=== PATIENT | female | born 1980 | race Caucasian/White ===

== ENCOUNTER 2016-11-16 20:25 | Emergency (ER) | payer MEDICARE, MEDICAID ==
[2016-11-16] MEDS ORDERED: Sodium Chloride 0.9% 10 ML Syringe FLUSH PRN (20:44)
--- NOTE | 2016-11-16 20:44 | EDM.PDOC ---
ED HPI GENERAL MEDICAL PROBLEM - General Chief Complaint: Abdominal Pain Stated Complaint: Lower abdominal pain; vomiting; nausea Time Seen by Provider: 11/16/16 20:29 Source of Information: Reports: Patient, RN, RN Notes Reviewed, Other (caregiver ) History Limitations: Reports: No Limitations - History of Present Illness INITIAL COMMENTS - FREE TEXT/NARRATIVE: Patient presents the emergency room at [facility] complaining of bilateral lower abdominal pain that started yesterday. The patient states that she did vomit several times yesterday. The patient states that she has noticed blood in the toilet. She states that the blood was after urination. The patient states that she has not seen any blood in bowel movements. The patient was recently treated for kidney stones in finish her antibiotics on November 06. The patient denies any shortness of breath or chest pain. No focal neurological deficits. The patient denies any fever or chills. The patient states that her abdominal pain starts after she eats. Last meal was one hour ago. Onset Date: 11/15/16 Duration: Waxing/Waning Location: Reports: Other (bilateral lower abdomen) Quality: Reports: Dull, Pressure Severity: Mild Context: Denies: Activity, Exercise, Sick Contact, Trauma Associated Symptoms: Reports: Nausea/Vomiting Treatments MERCHANDISE EXECUTION LEADER: Reports: Other (see below) (none) - Related Data Allergies Allergy/AdvReac Type Severity Reaction Status Date / Time latex Allergy Rash Verified 07/11/14 13:12 Home Meds: Home Meds Adapalene [Differin] 45 gm TP ASDIRECTED PRN 05/03/15 [History] Aspirin 1 tab DAILY 05/03/15 [History] Benazepril HCl 1 tab DAILY 05/03/15 [History] Calcium Carb & Citrate/Vit D3 [Calcium + D3 ER Tablet] 1 each PO DAILY 05/03/15 [History] Doxycycline [Vibramycin] 100 mg PO BID 05/03/15 [History] Escitalopram [Lexapro] 20 mg PO DAILY 05/03/15 [History] Multivitamin [Multi-Vitamin Daily] 1 tab DAILY 05/03/15 [History] Propranolol [Inderal LA] 1 cap DAILY 05/03/15 [History] amLODIPine [Norvasc] 5 mg PO DAILY 05/03/15 [History] busPIRone HCl [Buspirone HCl] 1 tab DAILY 05/03/15 [History] metFORMIN HCl [Metformin HCl] 500 mg PO BID 05/03/15 [History] Ciprofloxacin [Ciprofloxacin HCl] 500 mg PO BID #20 tablet 11/16/16 [Rx] metroNIDAZOLE [Flagyl] 500 mg PO Q8H #30 tablet 11/16/16 [Rx] predniSONE [Deltasone] 20 mg PO BID #10 tablet 11/16/16 [Rx] Past Medical History Other Gastrointestinal History: esophageal reflux Other OB/BYN History: abnormal menstration Other Psychiatric History: borderline personality disorder Other Dermatologic History: dermatitis Social & Family History - Tobacco Use Smoking Status *Q: Never Smoker - Recreational Drug Use Recreational Drug Use: No ED ROS GENERAL - Review of Systems Review Of Systems: See Below Constitutional: Denies: Fever, Chills, Weakness Respiratory: Denies: Shortness of Breath, Cough Cardiovascular: Denies: Chest Pain, Palpitations GI/Abdominal: Reports: Abdominal Pain, Nausea, Vomiting. Denies: Diarrhea : Reports: Hematuria Skin: Reports: No Symptoms Neurological: Reports: No Symptoms. Denies: Dizziness, Headache ED EXAM, GI/ABD - Physical Exam Exam: See Below Exam Limited By: No Limitations General Appearance: Alert, No Apparent Distress, Obese Respiratory/Chest: No Respiratory Distress, Lungs Clear, Normal Breath Sounds Cardiovascular: Regular Rate, Rhythm GI/Abdominal: Hypoactive Bowel Sounds, Tenderness (RLQ to lower pelvis). No: Guarding, Rebound (Female) Exam: Deferred Neurological: Alert, Oriented Skin Exam: Warm, Dry, Intact, Normal Color, No Rash Course - Orders/Labs/Meds Orders: Active Orders 24 hr Category Date Time Status Abdomen Pelvis w Cont [CT] Stat Exams 11/16/16 20:45 Ordered Sodium Chloride 0.9% [Normal Saline] 1,000 ml Med 11/16/16 20:45 Active IV ASDIRECTED Sodium Chloride 0.9% [Normal Saline] 100 ml Med 11/16/16 21:45 Active IV ASDIRECTED Sodium Chloride 0.9% [Saline Flush] Med 11/16/16 20:44 Active 10 ml FLUSH ASDIRECTED PRN Peripheral IV Insertion Adult [OM.PC] Routine Oth 11/16/16 20:44 Ordered Medication Orders Sodium Chloride (Normal Saline) 1,000 mls @ 999 mls/hr IV ASDIRECTED ALEX Last Admin: 11/16/16 21:52 Dose: 999 mls/hr Sodium Chloride (Normal Saline) 100 mls @ 3 mls/sec IV ASDIRECTED ALEX Last Admin: 11/16/16 21:54 Dose: 3 mls/sec Sodium Chloride (Saline Flush) 10 ml FLUSH ASDIRECTED PRN PRN Reason: Keep Vein Open Labs: Laboratory Tests 11/16/16 11/16/16 11/16/16 Range/Units 21:05 21:06 21:06 WBC 11.8 H (4.0-10.0) x10^3/uL RBC 3.75 L (4.00-5.50) x10^6/uL Hgb 11.7 L (12.0-16.0) g/dL Hct 34.2 (33.0-47.0) % MCV 91.2 D (78.0-93.0) fL MCH 31.2 (26.0-32.0) pg MCHC 34.2 (32.0-36.0) g/dL RDW Coeff of Jacobo 13.1 (10.0-15.0) % Plt Count 213 (130-400) x10^3/uL Neut % (Auto) 71.6 (50.0-80.0) % Lymph % (Auto) 20.4 L (25.0-50.0) % Barren % (Auto) 6.3 (2.0-11.0) % Eos % (Auto) 1.4 (0.0-4.0) % Baso % (Auto) 0.3 (0.2-1.2) % Sodium 144 (136-145) mmol/L Potassium 3.2 L (3.5-5.1) mmol/L Chloride 109 H (98-107) mmol/L Carbon Dioxide 25 (21-32) mmol/L BUN 14 (7-18) mg/dL Creatinine 1.0 (0.55-1.02) mg/dL Est Cr Clr Drug Dosing TNP Estimated GFR (MDRD) > 60 Glucose 142 H (74-106) mg/dL Lactic Acid 2.1 H (0.4-2.0) mmol/L Calcium 9.1 (8.5-10.1) mg/dL C-Reactive Protein 0.2 (<=0.9) mg/dL Amylase 31 (25-115) U/L Lipase 60 L (73-393) U/L Urine Color (YELLOW) Urine Appearance (CLEAR) Urine pH (5.0-8.0) Ur Specific Brandon Urine Protein (NEGATIVE) mg/dL Urine Glucose (UA) (NEGATIVE) mg/dL Urine Ketones (NEGATIVE) mg/dL Urine Occult Blood (NEGATIVE) Urine Nitrite (NEGATIVE) Urine Bilirubin (NEGATIVE) Urine Urobilinogen (0.2) EU/dL Ur Leukocyte Esterase (NEGATIVE) Urine RBC (NOT SEEN) /HPF Urine WBC (NOT SEEN) /HPF Ur Squamous Epith Cells (NEGATIVE) /HPF Urine Bacteria (NEGATIVE) /HPF Urine Mucus (NEGATIVE) /LPF Urine HCG, Qual (NEGATIVE) 11/16/16 11/16/16 Range/Units 21:39 21:39 WBC (4.0-10.0) x10^3/uL RBC (4.00-5.50) x10^6/uL Hgb (12.0-16.0) g/dL Hct (33.0-47.0) % MCV (78.0-93.0) fL MCH (26.0-32.0) pg MCHC (32.0-36.0) g/dL RDW Coeff of Jacobo (10.0-15.0) % Plt Count (130-400) x10^3/uL Neut % (Auto) (50.0-80.0) % Lymph % (Auto) (25.0-50.0) % Barren % (Auto) (2.0-11.0) % Eos % (Auto) (0.0-4.0) % Baso % (Auto) (0.2-1.2) % Sodium (136-145) mmol/L Potassium (3.5-5.1) mmol/L Chloride (98-107) mmol/L Carbon Dioxide (21-32) mmol/L BUN (7-18) mg/dL Creatinine (0.55-1.02) mg/dL Est Cr Clr Drug Dosing Estimated GFR (MDRD) Glucose (74-106) mg/dL Lactic Acid (0.4-2.0) mmol/L Calcium (8.5-10.1) mg/dL C-Reactive Protein (<=0.9) mg/dL Amylase (25-115) U/L Lipase (73-393) U/L Urine Color Yellow (YELLOW) Urine Appearance Clear (CLEAR) Urine pH 6.5 (5.0-8.0) Ur Specific Brandon 1.020 Urine Protein Negative (NEGATIVE) mg/dL Urine Glucose (UA) Negative (NEGATIVE) mg/dL Urine Ketones Negative (NEGATIVE) mg/dL Urine Occult Blood Small H (NEGATIVE) Urine Nitrite Negative (NEGATIVE) Urine Bilirubin Negative (NEGATIVE) Urine Urobilinogen 0.2 (0.2) EU/dL Ur Leukocyte Esterase Negative (NEGATIVE) Urine RBC 0-5 (NOT SEEN) /HPF Urine WBC 0-5 (NOT SEEN) /HPF Ur Squamous Epith Cells Many H (NEGATIVE) /HPF Urine Bacteria Few H (NEGATIVE) /HPF Urine Mucus Few H (NEGATIVE) /LPF Urine HCG, Qual Negative (NEGATIVE) Meds: Medications Generic Name Dose Route Start Last Admin Trade Name Freq PRN Reason Stop Dose Admin Sodium Chloride 1,000 mls @ 999 mls/hr 11/16/16 20:45 11/16/16 21:52 Normal Saline IV 999 mls/hr ASDIRECTED ALEX Administration Sodium Chloride 100 mls @ 3 mls/sec 11/16/16 21:45 11/16/16 21:54 Normal Saline IV 3 mls/sec ASDIRECTED ALEX Administration Sodium Chloride 10 ml 11/16/16 20:44 Saline Flush FLUSH ASDIRECTED PRN Keep Vein Open Discontinued Medications Generic Name Dose Route Start Last Admin Trade Name Freq PRN Reason Stop Dose Admin Iopamidol 100 ml 11/16/16 21:39 11/16/16 21:54 Isovue-300 (61%) IVPUSH 11/16/16 21:40 100 ml ONETIME ONE Administration Ketorolac Tromethamine 30 mg 11/16/16 20:45 11/16/16 21:34 Toradol IVPUSH 11/16/16 20:46 30 mg ONETIME ONE Administration Ondansetron HCl 4 mg 11/16/16 20:45 11/16/16 21:30 Zofran IVPUSH 11/16/16 20:46 4 mg ONETIME ONE Administration Potassium Chloride 40 meq 11/16/16 21:34 11/16/16 22:51 Klor-Con M20 PO 11/16/16 21:35 40 meq ONETIME ONE Administration - Radiology Interpretation Free Text/Narrative:: See scanned document in EMR CT Results Date: 11/16/16 CT Results Time: 22:43 Departure - Departure Time of Disposition: 23:11 Disposition: Home, Self-Care 01 Condition: good Clinical Impression: Colitis Diverticulitis large intestine Qualifiers: Diverticulitis bleeding: with bleeding Diverticulitis complication: unspecified complication status Qualified Code(s): K57.33 - Diverticulitis of large intestine without perforation or abscess with bleeding - Discharge Information Prescriptions: Ciprofloxacin [Ciprofloxacin HCl] 500 mg PO BID #20 tablet metroNIDAZOLE [Flagyl] 500 mg PO Q8H #30 tablet predniSONE [Deltasone] 20 mg PO BID #10 tablet Instructions: Diverticulitis Referrals: Genny Wolfe PA-C [Primary Care Provider] - Forms: ED Department Discharge Additional Instructions: 1. Stay well hydrated and rest 2. Take medications for the full coarse, even if you are feeling better 3. Eat a bland diet 4. See your primary in follow up next week to see how you are doing - Problem List Review Problem List Initiated/Reviewed/Updated: Yes - My Orders Last 24 Hours: My Active Orders 11/16/16 20:44 Sodium Chloride 0.9% [Saline Flush] 10 ml FLUSH ASDIRECTED PRN Peripheral IV Insertion Adult [OM.PC] Routine 11/16/16 20:45 Abdomen Pelvis w Cont [CT] Stat Sodium Chloride 0.9% [Normal Saline] 1,000 ml IV ASDIRECTED 11/16/16 21:45 Sodium Chloride 0.9% [Normal Saline] 100 ml IV ASDIRECTED - Assessment/Plan Last 24 Hours: My Active Orders 11/16/16 20:44 Sodium Chloride 0.9% [Saline Flush] 10 ml FLUSH ASDIRECTED PRN Peripheral IV Insertion Adult [OM.PC] Routine 11/16/16 20:45 Abdomen Pelvis w Cont [CT] Stat Sodium Chloride 0.9% [Normal Saline] 1,000 ml IV ASDIRECTED 11/16/16 21:45 Sodium Chloride 0.9% [Normal Saline] 100 ml IV ASDIRECTED
[2016-11-16] MEDS ORDERED: Sodium Chloride 0.9% 1,000 ML IV SCH (20:45)
[2016-11-16] MEDS ORDERED: Ketorolac 30 MG/ML SDV IVPUSH ONE (20:45)
[2016-11-16] MEDS ORDERED: Ondansetron 4 MG/2 ML SDV IVPUSH ONE (20:45)
[2016-11-16 21:29] LABS: CHLORIDE,CL 109 mmol/L (98-107); SODIUM,NA 144 mmol/L (136-145)
[2016-11-16] MEDS ORDERED: Potassium Chloride 20 MEQ Tab.ER PO ONE (21:34)
[2016-11-16] MEDS ORDERED: Iopamidol 612 MG/ML 100 ML Bottle IVPUSH ONE (21:39)
[2016-11-16] MEDS ORDERED: Sodium Chloride 0.9% 100 ML IV SCH (21:45)
[2016-11-16] MEDS ORDERED: methylPREDNISolone Sodium Succinate 125 MG/2 ML SDV IVPUSH ONE (23:18)
[2016-11-17 08:11] VITALS: BP 123/75
== END 2016-11-16 23:45 | disposition home or self-care (01) ==
LOC: VM.ED 20:25
DX: K52.9 Noninfective gastroenteritis and colitis, unspecified (principal); K57.33 Diverticulitis of large intestine without perforation or abscess with bleeding; Z91.040 Latex allergy status; Z79.82 Long term (current) use of aspirin; Z79.899 Other long term (current) drug therapy; Z98.84 Bariatric surgery status
CPT/HCPCS: 36415; 74177; 80048; 81001; 81025; 82150; 83605; 83690; 85025; 86140; 96361; 96374; 96375; 99284; A9270; J1885; J2405; J2930; J7030; J7050; Q9967

== ENCOUNTER 2016-12-20 06:14 | Day surgery (SDC) | payer MEDICARE, MEDICAID ==
[2016-12-20] MEDS ORDERED: Lactated Ringers 1,000 ML IV SCH (07:00)
[2016-12-20] MEDS ORDERED: fentaNYL 100 MCG/2 ML SDV ONE (07:54)
[2016-12-20] MEDS ORDERED: Propofol 200 MG/20 ML SDV ONE (07:54)
[2016-12-20 10:40] VITALS: BP 100/54
--- NOTE | 2016-12-20 15:48 | OR ---
PREOPERATIVE DIAGNOSIS: Recent diverticulitis. POSTOPERATIVE DIAGNOSIS: Essentially normal colonoscopic exam. No true diverticula noted. PROCEDURE PROPOSED AND PROCEDURE DONE: Total flexible colonoscopy. INDICATION: A 36-year-old female who was diagnosed with diverticulitis with the onset of some acute right lower quadrant abdominal pain. CAT scan apparently showed possible diverticulitis. She was treated with oral antibiotics. She was not hospitalized and referred now for colonoscopic exam. TECHNIQUE: The patient was brought to the endoscopy suite and placed in left lateral decubitus position. She was sedated per MID TEACHER with propofol. The flexible video colonoscope was then passed transanally and under visualization advanced to the cecum. Examination revealed a normal ascending, transverse, descending, sigmoid, and rectal colon. There was no evidence of any obvious diverticular orifices noted throughout the exam. No signs of any polyps, inflammation, colitis, or any other abnormalities. The scope was then withdrawn. The patient tolerated the procedure well. FINAL IMPRESSION: Essentially normal colonoscopic exam. PLAN: The patient was reassured. I did not feel she needed any particular followup exams, other than for screening in the future. She was discharged in good condition. SCM: 12/20/2016 08:29:58 MODL: 12/20/2016 15:41:08 /[id number]
== END 2016-12-20 09:55 | disposition home or self-care (01) ==
LOC: VM.SDS 06:14
PROVIDERS: ATTEND Surgery
DX: R10.31 Right lower quadrant pain (principal); K57.92 Diverticulitis of intestine, part unspecified, without perforation or abscess without bleeding; I10 Essential (primary) hypertension; E66.01 Morbid (severe) obesity due to excess calories; E11.9 Type 2 diabetes mellitus without complications; G47.33 Obstructive sleep apnea (adult) (pediatric); Z68.41 Body mass index [BMI] 40.0-44.9, adult; Z91.040 Latex allergy status; Z98.890 Other specified postprocedural states; Z79.899 Other long term (current) drug therapy; Z79.82 Long term (current) use of aspirin
CPT/HCPCS: 00810; 45378; 82962; J2704; J3010; J7120

== ENCOUNTER 2017-11-22 17:38 | Emergency (ER) | payer MEDICARE, MEDICAID ==
[2017-11-22 17:57] VITALS: BP 156/111
--- NOTE | 2017-11-22 18:16 | EDM.PDOC ---
ED HPI GENERAL MEDICAL PROBLEM - General Chief Complaint: Back Pain or Injury Stated Complaint: lower left back and leg pain Time Seen by Provider: 11/22/17 17:44 Source of Information: Reports: Patient History Limitations: Reports: Physical Impairment - History of Present Illness INITIAL COMMENTS - FREE TEXT/NARRATIVE: Patient was practicing at [employer] and aggravated her chronic back condition. She did not try any of her already prescribed medications. She has pain in her lower left back that radiates down to her leg along the lateral aspect. No leg weakness or reduced ROM. Onset: Today, Sudden Duration: Intermittent Location: Reports: Lower Extremity, Left Severity: Mild Associated Symptoms: Reports: No Other Symptoms - Related Data Allergies Allergy/AdvReac Type Severity Reaction Status Date / Time latex Allergy Rash Verified 12/20/16 06:55 Home Meds: Home Meds Adapalene [Differin] 45 gm TP ASDIRECTED PRN 05/03/15 [History] Benazepril HCl 1 tab DAILY 05/03/15 [History] Calcium Carb & Citrate/Vit D3 [Calcium + D3 ER Tablet] 1 each PO DAILY 05/03/15 [History] Doxycycline [Vibramycin] 100 mg PO BID 05/03/15 [History] Escitalopram [Lexapro] 20 mg PO DAILY 05/03/15 [History] Multivitamin [Multi-Vitamin Daily] 1 tab DAILY 05/03/15 [History] Propranolol [Inderal LA] 1 cap PO DAILY 05/03/15 [History] amLODIPine [Norvasc] 5 mg PO DAILY 05/03/15 [History] busPIRone HCl [Buspirone HCl] 1 tab PO DAILY 05/03/15 [History] metFORMIN HCl [Metformin HCl] 500 mg PO TID 05/03/15 [History] Phentermine HCl [Adipex-P] 0.5 tab PO DAILY 12/11/16 [History] Topiramate 1.5 tab PO BEDTIME 12/11/16 [History] Aspirin [Adult Low Dose Aspirin EC] 81 mg PO DAILY 12/15/16 [History] Etonogestrel [Nexplanon] 68 mg SQ ASDIRECTED 12/15/16 [History] Ibuprofen 200 - 400 mg PO Q4H PRN 12/15/16 [History] Melatonin 5 mg PO BEDTIME 12/15/16 [History] Tolterodine Tartrate [Tolterodine Tartrate ER] 2 mg PO DAILY 12/15/16 [History] Past Medical History HEENT History: Reports: None Cardiovascular History: Reports: Hypertension Respiratory History: Reports: Sleep Apnea Gastrointestinal History: Reports: Chronic Constipation, Other (See Below) Other Gastrointestinal History: Acute Diverticulitis Genitourinary History: Reports: Renal Calculus, Urinary Incontinence OVERHEAD CLEANER History: Reports: Other (See Below) Other OB/BYN History: Dysmenorrhea. Menorrhagia. Nexplanon implant Musculoskeletal History: Reports: Other (See Below) Other Musculoskeletal History: Parasthesia feet bilateral. Left elbow pain. 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 Deliberate self cutting Endocrine/Metabolic History: Reports: Diabetes, Type II, Obesity/BMI 30+ Hematologic History: Reports: None Immunologic History: Reports: None Oncologic (Cancer) History: Reports: None Other Dermatologic History: dermatitis - Past Surgical History Head Surgeries/Procedures: Reports: None HEENT Surgical History: Reports: None Cardiovascular Surgical History: Reports: None GI Surgical History: Reports: None Musculoskeletal Surgical History: Reports: Carpal Tunnel, Other (See Below) Other Musculoskeletal Surgeries/Procedures:: wrist sx. ankle sx Oncologic Surgical History: Reports: None ED ROS GENERAL - Review of Systems Review Of Systems: See Below Constitutional: Reports: No Symptoms HEENT: Reports: No Symptoms Respiratory: Reports: No Symptoms Cardiovascular: Reports: No Symptoms Endocrine: Reports: No Symptoms GI/Abdominal: Reports: No Symptoms : Reports: No Symptoms Musculoskeletal: Reports: Back Pain, Leg Pain Skin: Reports: No Symptoms Neurological: Reports: No Symptoms Psychiatric: Reports: No Symptoms Hematologic/Lymphatic: Reports: No Symptoms Immunologic: Reports: No Symptoms ED EXAM,LOWER BACK PAIN/INJURY - Physical Exam Exam: See Below Exam Limited By: No Limitations General Appearance: Alert, WD/WN, No Apparent Distress Respiratory/Chest: No Respiratory Distress, Lungs Clear, Normal Breath Sounds, No Accessory Muscle Use, Chest Non-Tender Cardiovascular: Normal Peripheral Pulses, Regular Rate, Rhythm, No Edema, No Gallop, No JVD, No Murmur, No Rub (Female) Exam: Normal External Exam, Normal Speculum Exam, Normal Bimanual Exam Back Exam: Normal Inspection, Decreased Range of Motion, Other (radiculopathy down left leg) Extremities: Normal Inspection, Normal Range of Motion, Non-Tender, No Pedal Edema, Normal Capillary Refill Neurological: Alert, Normal Mood/Affect, Normal Dorsiflexion, CN II-XII Intact, Normal Plantar Flexion, Normal Gait, Normal Reflexes, No Motor/Sensory Deficits , Oriented x 3 Psychiatric: Normal Affect, Normal Mood Skin Exam: Warm, Dry, Intact, Normal Color, No Rash Course - Vital Signs Last Recorded V/S: Last Vital Signs Temp 37.0 C 11/22/17 17:47 Pulse 110 H 11/22/17 17:47 Resp 22 H 11/22/17 17:47 BP 156/111 H 11/22/17 17:47 Pulse Ox 99 11/22/17 17:47 Departure - Departure Time of Disposition: 18:14 Disposition: Home, Self-Care 01 Condition: Good Clinical Impression: Chronic back pain, Acute low back pain - Discharge Information Instructions: Back Pain, Adult, [id number], Back Injury Prevention, Easy-to- Read Additional Instructions: You have aggravated your chronic back pain. Alternate ice with heat and make sure to take your prescribed muscle relaxant with tylenol and ibuprofen to reduce inflammation and pain. Take the Medrol dose pack as prescribed to reduce inflammation. Follow up with Dr. Arango as needed for additional symptom management. Make sure to stay hydrated. Other tips for reducing back pain include doing daily stretches and weight loss. Please call if you have additional questions or concerns. - Problem List & Annotations (1) Chronic back pain SNOMED Code(s): 704275583 Code(s): M54.9 - DORSALGIA, UNSPECIFIED; G89.29 - OTHER CHRONIC PAIN Status : Acute Priority: Low Current Visit: Yes Qualifiers: Back pain location: low back pain Back pain laterality: left Sciatica laterality: sciatica of left side (2) Acute low back pain SNOMED Code(s): 787349971 Code(s): M54.5 - LOW BACK PAIN Status: Acute Priority: Medium Current Visit: Yes Qualifiers: Back pain laterality: left Sciatica laterality: sciatica of left side - Problem List Review Problem List Initiated/Reviewed/Updated: Yes - Assessment/Plan Assessment:: acute injury of chronic back pain Plan: You have aggravated your chronic back pain. Alternate ice with heat and make sure to take your prescribed muscle relaxant with tylenol and ibuprofen to reduce inflammation and pain. Take the Medrol dose pack as prescribed to reduce inflammation. Follow up with Dr. Arango as needed for additional symptom management. Make sure to stay hydrated. Other tips for reducing back pain include doing daily stretches and weight loss. Please call if you have additional questions or concerns.
== END 2017-11-22 18:24 | disposition home or self-care (01) ==
LOC: VM.ED 17:38
DX: M54.5 Low back pain (principal); G89.29 Other chronic pain; I10 Essential (primary) hypertension; E11.9 Type 2 diabetes mellitus without complications; E66.9 Obesity, unspecified; Z91.040 Latex allergy status; Z79.899 Other long term (current) drug therapy; Z79.84 Long term (current) use of oral hypoglycemic drugs
CPT/HCPCS: 99283

== ENCOUNTER 2019-03-06 22:40 | Emergency (ER) | payer MEDICARE, MEDICAID ==
[2019-03-06] MEDS ORDERED: Ketorolac 30 MG/ML SDV IM ONE (22:59)
--- NOTE | 2019-03-06 22:59 | EDM.PDOC ---
ED HPI GENERAL MEDICAL PROBLEM - General Stated Complaint: EAR PAIN Time Seen by Provider: 03/06/19 22:54 Source of Information: Reports: Patient - History of Present Illness INITIAL COMMENTS - FREE TEXT/NARRATIVE: Pt c/o pain and plugged right ear, Quality: Reports: Ache Severity: Moderate - Related Data Allergies Allergy/AdvReac Type Severity Reaction Status Date / Time latex Allergy Rash Verified 05/27/18 15:20 Home Meds: Home Meds Adapalene [Differin] 45 gm TP ASDIRECTED PRN 05/03/15 [History] Benazepril HCl 1 tab DAILY 05/03/15 [History] Calcium Carb & Citrate/Vit D3 [Calcium + D3 ER Tablet] 1 each PO DAILY 05/03/15 [History] Doxycycline [Vibramycin] 100 mg PO BID 05/03/15 [History] Escitalopram [Lexapro] 20 mg PO DAILY 05/03/15 [History] Multivitamin [Multi-Vitamin Daily] 1 tab DAILY 05/03/15 [History] Propranolol [Inderal LA] 1 cap PO DAILY 05/03/15 [History] amLODIPine [Norvasc] 5 mg PO DAILY 05/03/15 [History] busPIRone HCl [Buspirone HCl] 1 tab PO DAILY 05/03/15 [History] metFORMIN HCl [Metformin HCl] 500 mg PO TID 05/03/15 [History] Phentermine HCl [Adipex-P] 0.5 tab PO DAILY 12/11/16 [History] Topiramate 1.5 tab PO BEDTIME 12/11/16 [History] Aspirin [Adult Low Dose Aspirin EC] 81 mg PO DAILY 12/15/16 [History] Etonogestrel [Nexplanon] 68 mg SQ ASDIRECTED 12/15/16 [History] Ibuprofen 200 - 400 mg PO Q4H PRN 12/15/16 [History] Melatonin 5 mg PO BEDTIME 12/15/16 [History] Tolterodine Tartrate [Tolterodine Tartrate ER] 2 mg PO DAILY 12/15/16 [History] Tamsulosin HCl [Flomax] 0.4 mg PO DAILY 6 Days #6 cap.er.24h 05/22/18 [Rx] Past Medical History - Past Health History Medical/Surgical History: Denies Medical/Surgical History HEENT History: Reports: None Cardiovascular History: Reports: Hypertension Respiratory History: Reports: Sleep Apnea Gastrointestinal History: Reports: Chronic Constipation, Other (See Below) Other Gastrointestinal History: Acute Diverticulitis Genitourinary History: Reports: Renal Calculus, Urinary Incontinence ADMINISTRATIVE SERVICES COORDINATOR History: Reports: Other (See Below) Other ADMINISTRATIVE SERVICES COORDINATOR History: Dysmenorrhea. Menorrhagia. Nexplanon implant Musculoskeletal History: Reports: Other (See Below) Other Musculoskeletal History: Parasthesia feet bilateral. Left elbow pain. 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 Deliberate self cutting Endocrine/Metabolic History: Reports: Diabetes, Type II, Obesity/BMI 30+ Hematologic History: Reports: None Immunologic History: Reports: None Oncologic (Cancer) History: Reports: None Other Dermatologic History: dermatitis - Past Surgical History Head Surgeries/Procedures: Reports: None HEENT Surgical History: Reports: None Cardiovascular Surgical History: Reports: None GI Surgical History: Reports: None Musculoskeletal Surgical History: Reports: Carpal Tunnel, Other (See Below) Other Musculoskeletal Surgeries/Procedures:: wrist sx. ankle sx Oncologic Surgical History: Reports: None ED ROS GENERAL - Review of Systems Review Of Systems: See Below Constitutional: Reports: No Symptoms HEENT: Reports: Ear Pain Respiratory: Reports: No Symptoms Cardiovascular: Reports: No Symptoms Endocrine: Reports: No Symptoms GI/Abdominal: Reports: No Symptoms : Reports: No Symptoms Musculoskeletal: Reports: No Symptoms Skin: Reports: No Symptoms Neurological: Reports: No Symptoms Psychiatric: Reports: No Symptoms ED EXAM, GENERAL - Physical Exam Exam: See Below General Appearance: Alert, WD/WN, No Apparent Distress Ears: Other (cerumen impaction bilateral ) Nose: Normal Inspection Throat/Mouth: Normal Inspection Head: Atraumatic, Normocephalic Neck: Normal Inspection Respiratory/Chest: No Respiratory Distress Cardiovascular: Normal Peripheral Pulses Back Exam: Normal Inspection Extremities: Normal Inspection Neurological: Alert, Oriented Psychiatric: Normal Affect, Normal Mood Skin Exam: Warm, Dry, Intact Departure - Departure Time of Disposition: 22:58 Disposition: Home, Self-Care 01 Clinical Impression: Cerumen impaction - Discharge Information Referrals: Casie Bowen MD [Primary Care Provider] - Care Plan Goals: Follow up at the clinic for ear lavage. Ibuprofen every 6 hours as needed for pain
[2019-03-07 04:32] VITALS: BP 151/93; PULSE 92
== END 2019-03-07 00:14 | disposition home or self-care (01) ==
LOC: VM.ED 22:40
DX: H61.23 Impacted cerumen, bilateral (principal); I10 Essential (primary) hypertension; F32.9 Major depressive disorder, single episode, unspecified; F41.9 Anxiety disorder, unspecified; E11.9 Type 2 diabetes mellitus without complications; E66.9 Obesity, unspecified; Z91.040 Latex allergy status; Z79.899 Other long term (current) drug therapy; Z79.84 Long term (current) use of oral hypoglycemic drugs; Z79.82 Long term (current) use of aspirin; Z68.30 Body mass index [BMI] 30.0-30.9, adult
CPT/HCPCS: 96372; 99282; J1885; 99283-GF

== ENCOUNTER 2019-04-19 19:12 | Emergency (ER) | payer MEDICARE, MEDICAID ==
[2019-04-19 19:23] VITALS: BP 133/85; PULSE 89
[2019-04-19] MEDS ORDERED: Sodium Chloride 0.9% 10 ML Syringe FLUSH PRN (19:32)
[2019-04-19] MEDS ORDERED: Sodium Chloride 0.9% 1,000 ML IV ONE (19:32)
[2019-04-19] MEDS ORDERED: Ketorolac 15 MG/ML SDV IVPUSH ONE (19:33)
[2019-04-19] MEDS ORDERED: Ondansetron 4 MG/2 ML SDV IVPUSH ONE (19:33)
[2019-04-19] MEDS ORDERED: Morphine 4 MG/ML Syringe IVPUSH ONE (19:33)
[2019-04-19 20:33] LABS: ANION GAP 17.9 mmol/L (10-20); CHLORIDE,CL 106 mmol/L (54-184); SODIUM,NA 143 mmol/L (69-191)
[2019-04-19] MEDS ORDERED: Take Home: Acetaminophen/HYDROcodone 325-10 MG, 5 Tab Pack PO ONE (21:02)
[2019-04-19] MEDS ORDERED: Tamsulosin 0.4 MG Cap.ER PO ONE (21:03)
--- NOTE | 2019-04-19 21:14 | EDM.PDOC ---
ED HPI GENERAL MEDICAL PROBLEM - General Chief Complaint: Genitourinary Problem Stated Complaint: BACK PAIN Time Seen by Provider: 04/19/19 19:28 Source of Information: Reports: Patient History Limitations: Reports: No Limitations - History of Present Illness INITIAL COMMENTS - FREE TEXT/NARRATIVE: Pt. presents to ER with complaints of L sided flank pain. Caregiver states that pt. was seen in clinic last week for the same and had "a negative UA". She was scheduled for a CT abdomen and pelvis without contrast. Denies any fever or chills. No chest pain or shortness of breath. Pt. states that she has a history of renal colic in the past. She states that her last kidney stone was in October. Pt. states that she has had parth hematuria today and states that the discomfort is worse tonight than it has been. Onset: Today Location: Reports: Abdomen, Back Quality: Reports: Ache, Sharp, Throbbing Left Flank Pain Score (Numeric/FACES): 8 - Related Data Allergies Allergy/AdvReac Type Severity Reaction Status Date / Time latex Allergy Rash Verified 04/19/19 19:18 Home Meds: Home Meds Benazepril HCl 20 mg PO BID 05/03/15 [History] Propranolol [Inderal LA] 1 cap PO DAILY 05/03/15 [History] amLODIPine [Norvasc] 10 mg PO DAILY 05/03/15 [History] metFORMIN HCl [Metformin HCl] 1,000 mg PO BID 05/03/15 [History] Phentermine HCl [Adipex-P] 37.5 mg PO DAILY 12/11/16 [History] Aspirin [Adult Low Dose Aspirin EC] 81 mg PO DAILY 12/15/16 [History] Etonogestrel [Nexplanon] 68 mg SQ ASDIRECTED 12/15/16 [History] Melatonin 10 mg PO BEDTIME 12/15/16 [History] Acetaminophen 1 - 2 tab PO Q6H PRN 04/19/19 [History] Cyclobenzaprine [Flexeril] 5 mg PO TID PRN 04/19/19 [History] Ondansetron [Zofran] 4 mg PO Q6H PRN 04/19/19 [History] Rosuvastatin [Crestor] 5 mg PO BEDTIME 04/19/19 [History] Semaglutide [Ozempic] 0.5 mg SQ WEEKLY 04/19/19 [History] Past Medical History - Past Health History Medical/Surgical History: Denies Medical/Surgical History HEENT History: Reports: None Cardiovascular History: Reports: Hypertension Respiratory History: Reports: Sleep Apnea Gastrointestinal History: Reports: Chronic Constipation, Other (See Below) Other Gastrointestinal History: Acute Diverticulitis Genitourinary History: Reports: Renal Calculus, Urinary Incontinence 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 Menorrhagia. Nexplanon implant Musculoskeletal History: Reports: Other (See Below) Other Musculoskeletal History: Parasthesia feet bilateral. Left elbow pain. 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 Deliberate self cutting Endocrine/Metabolic History: Reports: Diabetes, Type II, Obesity/BMI 30+ Hematologic History: Reports: None Immunologic History: Reports: None Oncologic (Cancer) History: Reports: None Other Dermatologic History: dermatitis - Past Surgical History Head Surgeries/Procedures: Reports: None HEENT Surgical History: Reports: None Cardiovascular Surgical History: Reports: None GI Surgical History: Reports: None Musculoskeletal Surgical History: Reports: Carpal Tunnel, Other (See Below) Other Musculoskeletal Surgeries/Procedures:: wrist sx. ankle sx Oncologic Surgical History: Reports: None Social & Family History - Tobacco Use Smoking Status *Q: Never Smoker ED ROS GENERAL - Review of Systems Review Of Systems: See Below Constitutional: Reports: No Symptoms HEENT: Reports: No Symptoms Respiratory: Reports: No Symptoms Cardiovascular: Reports: No Symptoms Endocrine: Reports: No Symptoms GI/Abdominal: Reports: Abdominal Pain : Reports: Flank Pain Musculoskeletal: Reports: No Symptoms Skin: Reports: No Symptoms Neurological: Reports: No Symptoms Psychiatric: Reports: No Symptoms Hematologic/Lymphatic: Reports: No Symptoms Immunologic: Reports: No Symptoms ED EXAM, GENERAL - Physical Exam Exam: See Below Exam Limited By: No Limitations General Appearance: Alert, WD/WN, No Apparent Distress Throat/Mouth: Normal Inspection, Normal Lips, Normal Teeth, Normal Gums, Normal Oropharynx, Normal Voice, No Airway Compromise Head: Atraumatic, Normocephalic Neck: Normal Inspection, Supple, Non-Tender, Full Range of Motion Respiratory/Chest: No Respiratory Distress, Lungs Clear, Normal Breath Sounds, No Accessory Muscle Use, Chest Non-Tender Cardiovascular: Normal Peripheral Pulses, Regular Rate, Rhythm, No Edema, No Gallop, No JVD, No Murmur, No Rub Peripheral Pulses: 4+: Radial (R) GI/Abdominal: Normal Bowel Sounds, Soft, Non-Tender, No Organomegaly, No Distention, No Abnormal Bruit, No Mass (Female) Exam: Deferred Rectal (Female) Exam: Deferred Back Exam: Normal Inspection, Full Range of Motion Extremities: Normal Inspection, Normal Range of Motion, Non-Tender, No Pedal Edema, Normal Capillary Refill Neurological: Alert, Oriented, CN II-XII Intact, Normal Cognition, Normal Gait, Normal Reflexes, No Motor/Sensory Deficits Psychiatric: Normal Affect, Normal Mood Skin Exam: Warm, Dry, Intact, Normal Color, No Rash Lymphatic: No Adenopathy Course - Vital Signs Last Recorded V/S: Last Vital Signs Temp 36.7 C 04/19/19 19:19 Pulse 89 04/19/19 19:19 Resp 18 04/19/19 19:19 BP 133/85 04/19/19 19:19 Pulse Ox 97 04/19/19 19:19 - Orders/Labs/Meds Orders: Active Orders 24 hr Category Date Time Status Abdomen Pelvis wo Cont [CT] Stat Exams 04/19/19 19:44 Taken UA W/MICROSCOPIC [URIN] Stat Lab 04/19/19 20:57 Ordered Peripheral IV Insertion Adult [OM.PC] Routine Oth 04/19/19 19:32 Ordered Labs: Laboratory Tests 04/19/19 04/19/19 04/19/19 Range/Units 20:11 20:11 20:11 WBC 8.6 (4.0-10.0) x10^3/uL RBC 4.54 (4.00-5.50) x10^6/uL Hgb 13.4 (12.0-16.0) g/dL Hct 39.5 (33.0-47.0) % MCV 87.0 (78.0-93.0) fL MCH 29.5 (26.0-32.0) pg MCHC 33.9 (32.0-36.0) g/dL RDW Coeff of Jacobo 14.0 (10.0-15.0) % Plt Count 241 (130-400) x10^3/uL Neut % (Auto) 62.2 (50.0-80.0) % Lymph % (Auto) 29.4 (25.0-50.0) % George % (Auto) 6.7 (2.0-11.0) % Eos % (Auto) 1.5 (0.0-4.0) % Baso % (Auto) 0.2 (0.2-1.2) % PT 10.1 (10.0-12.8) SEC INR 0.9 L (2.0-3.5) Sodium 143 (69-191) mmol/L Potassium 3.9 (1.5-9.9) mmol/L Chloride 106 (54-184) mmol/L Carbon Dioxide 23 (21-32) mmol/L Anion Gap 17.9 (10-20) mmol/L BUN 16 (7-18) mg/dL Creatinine 0.9 (0.55-1.02) mg/dL Est Cr Clr Drug Dosing 77.79 mL/min Estimated GFR (MDRD) > 60 Glucose 186 H (74-106) mg/dL Calcium 9.2 (8.5-10.1) mg/dL Corrected Calcium 9.60 (8.5-10.1) mg/dL Phosphorus 3.7 (2.6-4.7) mg/dL Magnesium 1.6 L (1.8-2.4) mg/dL Total Bilirubin 0.4 (0.2-1.0) mg/dL AST 17 (15-37) U/L ALT 30 (14-59) U/L Alkaline Phosphatase 117 H (46-116) U/L Total Protein 8.0 (6.4-8.2) g/dL Albumin 3.5 (3.4-5.0) g/dL Globulin 4.5 Albumin/Globulin Ratio 0.78 Urine Color (YELLOW) POC Urine Appearance (CLEAR) POC Urine pH (5.0-8.0) Ur Specific Dixon (1.005-1.030) POC Urine Protein (NEGATIVE) POC Ur Glucose (UA) (NEGATIVE) POC Urine Ketones (NEGATIVE) POC Ur Occult Blood (NEGATIVE) POC Urine Nitrite (NEGATIVE) POC Urine Bilirubin (NEGATIVE) POC Urine Urobilinogen (0.2) POC U Leukocyte Esteras (NEGATIVE) 10/26/19 Range/Units 21:02 WBC (4.0-10.0) x10^3/uL RBC (4.00-5.50) x10^6/uL Hgb (12.0-16.0) g/dL Hct (33.0-47.0) % MCV (78.0-93.0) fL MCH (26.0-32.0) pg MCHC (32.0-36.0) g/dL RDW Coeff of Jacobo (10.0-15.0) % Plt Count (130-400) x10^3/uL Neut % (Auto) (50.0-80.0) % Lymph % (Auto) (25.0-50.0) % George % (Auto) (2.0-11.0) % Eos % (Auto) (0.0-4.0) % Baso % (Auto) (0.2-1.2) % PT (10.0-12.8) SEC INR (2.0-3.5) Sodium (69-191) mmol/L Potassium (1.5-9.9) mmol/L Chloride (54-184) mmol/L Carbon Dioxide (21-32) mmol/L Anion Gap (10-20) mmol/L BUN (7-18) mg/dL Creatinine (0.55-1.02) mg/dL Est Cr Clr Drug Dosing mL/min Estimated GFR (MDRD) Glucose (74-106) mg/dL Calcium (8.5-10.1) mg/dL Corrected Calcium (8.5-10.1) mg/dL Phosphorus (2.6-4.7) mg/dL Magnesium (1.8-2.4) mg/dL Total Bilirubin (0.2-1.0) mg/dL AST (15-37) U/L ALT (14-59) U/L Alkaline Phosphatase (46-116) U/L Total Protein (6.4-8.2) g/dL Albumin (3.4-5.0) g/dL Globulin Albumin/Globulin Ratio Urine Color Dark yellow (YELLOW) POC Urine Appearance Slightly cloudy H (CLEAR) POC Urine pH 6.0 (5.0-8.0) Ur Specific Dixon 1.030 (1.005-1.030) POC Urine Protein Trace H (NEGATIVE) POC Ur Glucose (UA) Negative (NEGATIVE) POC Urine Ketones Negative (NEGATIVE) POC Ur Occult Blood Large H (NEGATIVE) POC Urine Nitrite Negative (NEGATIVE) POC Urine Bilirubin Negative (NEGATIVE) POC Urine Urobilinogen 0.2 (0.2) POC U Leukocyte Esteras Negative (NEGATIVE) Meds: Medications Discontinued Medications Generic Name Dose Route Start Last Admin Trade Name Juan Antonioq PRN Reason Stop Dose Admin Hydrocodone Bitart/Acetaminophen 2 packet 04/19/19 21:02 04/19/19 21:07 Take Home: Acetaminophen/Hydrocodone 325-10mg PO 04/19/19 21:03 2 packet ONETIME ONE Administration Sodium Chloride 1,000 mls @ 999 mls/hr 04/19/19 19:32 04/19/19 20:10 Normal Saline IV 04/19/19 20:32 999 mls/hr ONETIME ONE Administration Ketorolac Tromethamine 15 mg 04/19/19 19:33 04/19/19 19:49 Toradol IVPUSH 04/19/19 19:34 15 mg ONETIME ONE Administration Morphine Sulfate 4 mg 04/19/19 19:33 04/19/19 19:50 Morphine IVPUSH 04/19/19 19:34 4 mg ONETIME ONE Administration Ondansetron HCl 4 mg 04/19/19 19:33 04/19/19 19:48 Zofran IVPUSH 04/19/19 19:34 4 mg ONETIME ONE Administration Sodium Chloride 10 ml 04/19/19 19:32 Saline Flush FLUSH ASDIRECTED PRN Keep Vein Open Tamsulosin HCl 0.4 mg 04/19/19 21:03 04/19/19 21:07 Flomax PO 04/19/19 21:04 0.4 mg ONETIME ONE Administration - Radiology Interpretation Free Text/Narrative:: 3 mm renal calculi No hydro. Inflammatory changes, consistent with recently passed stone vs. pyelonephritis. Urine is negative for nitrates and leukocytes, so likely the former. Departure - Departure Time of Disposition: 21:25 Disposition: Home, Self-Care 01 Clinical Impression: Kidney stone on left side - Discharge Information Instructions: Acetaminophen; Hydrocodone tablets or capsules, Kidney Stones, [id number], Tamsulosin capsules Referrals: Casie Bowen MD [Primary Care Provider] - Forms: ED Department Discharge Additional Instructions: Home to rest Increase intake of water Reliance 10/325mg 1 tab every 4-6 hours as needed for pain Flomax 1 tab daily Strain urine. Collect stones and bring to clinic for analysis Recheck in clinic next week - My Orders Last 24 Hours: My Active Orders 04/19/19 19:32 Peripheral IV Insertion Adult [OM.PC] Routine 04/19/19 19:44 Abdomen Pelvis wo Cont [CT] Stat 04/19/19 20:57 UA W/MICROSCOPIC [URIN] Stat - Assessment/Plan Last 24 Hours: My Active Orders 04/19/19 19:32 Peripheral IV Insertion Adult [OM.PC] Routine 04/19/19 19:44 Abdomen Pelvis wo Cont [CT] Stat 04/19/19 20:57 UA W/MICROSCOPIC [URIN] Stat Plan: Home to rest Increase intake of water Reliance 10/325mg 1 tab every 4-6 hours as needed for pain Flomax 1 tab daily Strain urine. Collect stones and bring to clinic for analysis Recheck in clinic next week
--- NOTE | 2019-04-20 09:32 | CT ---
[id number] CT/CT Abdomen Pelvis WO IV EXAM: CT Abdomen Pelvis WO IV CLINICAL DATA: LEFT SIDED FLANK PAIN COMPARISON STUDY: October 24, 2018. FINDINGS: Lung bases are clear. Liver, spleen, gallbladder, pancreas, and adrenal glands are unremarkable. Punctate nonobstructing right renal calculi. No hydronephrosis or hydroureter. No renal calculi the left. No suspicious renal lesions are identified. No radiodense stones within the urinary bladder. No bowel obstruction or inflammation. The appendix is visualized and appears normal. No lymphadenopathy, free fluid, or pneumoperitoneum. A few scattered atherosclerotic calcifications of the aorta. Scattered changes of spondylosis the spine. No fracture or osseous lesion. IMPRESSION: 1. No obstructing stones within the urinary tract. Punctate nonobstructing right renal calculi. No hydronephrosis or hydroureter. The previously seen stones on the left are no longer appreciated and may have recently passed. Judah Root DO 04/20/19 0931 Thank you for allowing us to participate in the care of your patient.
== END 2019-04-19 21:25 | disposition home or self-care (01) ==
LOC: VM.ED 19:12
DX: N20.0 Calculus of kidney (principal); I10 Essential (primary) hypertension; E11.9 Type 2 diabetes mellitus without complications; E66.9 Obesity, unspecified; Z68.42 Body mass index [BMI] 45.0-49.9, adult; Z79.82 Long term (current) use of aspirin; Z79.84 Long term (current) use of oral hypoglycemic drugs; Z79.899 Other long term (current) drug therapy; Z91.040 Latex allergy status
CPT/HCPCS: 36415; 74176; 80053; 81002; 83735; 84100; 85025; 85610; 96361; 96374; 96375; 99284-25; A9270-GY; J1885; J2270; J2405; J7030

== ENCOUNTER 2021-06-11 20:45 | Observation (INO) | payer MEDICARE, MEDICAID ==
[2021-06-11] MEDS ORDERED: Sodium Chloride 0.9% 10 ML Syringe FLUSH PRN (21:01)
[2021-06-11] MEDS ORDERED: Metoclopramide 10 MG/2 ML SDV IVPUSH ONE (21:30)
[2021-06-11 21:40] LABS: CHLORIDE,CL 104 mmol/L (98-107); SODIUM,NA 139 mmol/L (136-145)
[2021-06-11 21:48] LABS: ANION GAP 13.9 mmol/L (5-15)
[2021-06-11 22:05] LABS: BARBITURATE SCREEN,URINE NEGATIVE (NEGATIVE); BENZODIAZEPINES SCREEN,URINE NEGATIVE (NEGATIVE); BUPRENORPHINE SCREEN,URINE NEGATIVE (NEGATIVE); METHAMPHETAMINE SCREEN, URINE NEGATIVE (NEGATIVE); THC SCREEN,URINE 50 NG/ML NEGATIVE (NEGATIVE)
[2021-06-11] MEDS ORDERED: cefTRIAXone 1 GM Vial IVPUSH ONE (22:11)
[2021-06-11] MEDS ORDERED: Magnesium Sulfate/Water 2 GM in Premix Bag 1 BAG IV ONE (22:39)
--- NOTE | 2021-06-11 22:51 | EDM.PDOC ---
ED HPI GENERAL MEDICAL PROBLEM - General Chief Complaint: General Time Seen by Provider: 06/11/21 20:45 Source of Information: Reports: Patient History Limitations: Reports: No Limitations - History of Present Illness INITIAL COMMENTS - FREE TEXT/NARRATIVE: Pt. presents to ER with managed care nurse. Pt. receives some services from Leticia Aguillon. The managed care nurse had taken the patient to a [place] tonight with a friend. After dropping off the friend at home, pt. become somnolent and complained of headache and fatigue. Symptoms gradually worsened until pt. was pretty much completely unresponsive to verbal stimuli. She was brought to ER via private vehicle. Caregiver states that the patient has exhibited similar symptoms recently in the past. She states that the last time this happened was on . Caregiver states that she was able to "talk her down" and states that she gave her some juice, thinking her blood sugar was low (they did not check her blood sugar). Pt. apparently handles all of her own medical decision making. In reviewing her various EMR data, it appears that she is receiving care at both [facility] locally as well as from Tres Anders MD at [facility] in [place]. [place] states that she is not really sure (nor is the patient) what medications she is supposed to be taking. Caregiver feels that the patient is "falling through the cracks" in terms of receiving primary care. Caregiver brought the patient's medications to the ER, and there were numerous discrepancies at to what she is actually taking vs. what is listed on her clinic med list. Later in the visit, pt. only complaint was of headache and fatigue. Denies any chest pain, shortness of breath, nausea, vomiting, diarrhea, unilateral weakness, problems with speech, difficulty ambulating, acute vision loss or change, recent trauma, fever or chills. Onset: Today Onset Date: 06/11/21 Location: Reports: Head, Generalized Quality: Reports: Throbbing Severity: Moderate - Related Data Allergies Allergy/AdvReac Type Severity Reaction Status Date / Time latex Allergy Rash Verified 10/22/19 13:12 Home Meds: Home Meds Benazepril HCl 20 mg PO BID 05/03/15 [History] Propranolol [Inderal LA] 1 cap PO DAILY 05/03/15 [History] amLODIPine [Norvasc] 10 mg PO DAILY 05/03/15 [History] metFORMIN HCl [Metformin HCl] 1,000 mg PO BID 05/03/15 [History] Phentermine HCl [Adipex-P] 37.5 mg PO DAILY 12/11/16 [History] Aspirin [Adult Low Dose Aspirin EC] 81 mg PO DAILY 12/15/16 [History] Etonogestrel [Nexplanon] 68 mg SQ ASDIRECTED 12/15/16 [History] Melatonin 10 mg PO BEDTIME 12/15/16 [History] Acetaminophen 1 - 2 tab PO Q6H PRN 04/19/19 [History] Cyclobenzaprine [Flexeril] 5 mg PO TID PRN 04/19/19 [History] Ondansetron [Zofran] 4 mg PO Q6H PRN 04/19/19 [History] Semaglutide [Ozempic] 0.5 mg SQ WEEKLY 04/19/19 [History] Albuterol [Take Home: Albuterol 18 GM, 1 INH Pack] 1 - 2 puff INH Q4H PRN 09/18/19 [History] Budesonide [Pulmicort] 1 inhalation NEB BID 09/18/19 [History] Cyclobenzaprine [Flexeril] 1 tab PO TID PRN 09/18/19 [History] Rosuvastatin Calcium 1 tab PO DAILY 09/18/19 [History] Topiramate 50 mg PO BEDTIME 09/18/19 [History] Past Medical History - Past Health History Medical/Surgical History: Denies Medical/Surgical History HEENT History: Reports: None Cardiovascular History: Reports: Hypertension Respiratory History: Reports: Sleep Apnea Gastrointestinal History: Reports: Chronic Constipation, Other (See Below) Other Gastrointestinal History: diverticulosis; hx of Diverticulitis Genitourinary History: Reports: Renal Calculus, Urinary Incontinence [employer] History: Reports: Other (See Below) Other [employer] History: metrorrhagia. Dysmenorrhea. Menorrhagia. Nexplanon implant Musculoskeletal History: Reports: Other (See Below) Other Musculoskeletal History: Parasthesia feet bilateral. Left elbow pain. 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 Deliberate self cutting. PMDD. tobacco use. mild mental retardation Endocrine/Metabolic History: Reports: Diabetes, Type II, Obesity/BMI 30+ Hematologic History: Reports: Anemia, Iron Deficiency Immunologic History: Reports: None Oncologic (Cancer) History: Reports: None Dermatologic History: Reports: Other (See Below) Other Dermatologic History: acne; dermatitis - Past Surgical History Head Surgeries/Procedures: Reports: None HEENT Surgical History: Reports: None Cardiovascular Surgical History: Reports: None GI Surgical History: Reports: None Female Surgical History: Reports: Cystoscopy, Tubal Ligation Neurological Surgical History: Reports: None Musculoskeletal Surgical History: Reports: Arthroscopic Procedure, Carpal Fuentes eduardo, Other (See Below) Other Musculoskeletal Surgeries/Procedures:: l wrist sx. r foot sx. r arm sx. 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 Denies: Fever, Chills HEENT: Reports: No Symptoms Respiratory: Reports: No Symptoms Cardiovascular: Reports: No Symptoms Endocrine: Reports: No Symptoms GI/Abdominal: Reports: No Symptoms : Reports: No Symptoms Musculoskeletal: Reports: No Symptoms Skin: Reports: No Symptoms Neurological: Reports: Confusion, Headache, Other (Minimally responsive on arrival to ER.) Psychiatric: Reports: Confusion Hematologic/Lymphatic: Reports: No Symptoms Immunologic: Reports: No Symptoms ED EXAM, GENERAL - Physical Exam Exam: See Below Exam Limited By: Uncooperative (refuses CT of head) General Appearance: Alert, Lethargic, Obtunded Eye Exam: Bilateral Eye: EOMI, PERRL, Other (attempts to close eyes when being examined) Ears: Normal External Exam, Normal Canal, Hearing Grossly Normal, Normal TMs Ear Exam: Bilateral Ear: Auricle Normal, Canal Normal, TM normal Throat/Mouth: Normal Inspection, Normal Lips, Normal Teeth, Normal Gums, Normal Oropharynx, Normal Voice, No Airway Compromise Head: Atraumatic, Normocephalic Neck: Normal Inspection, Supple, Non-Tender, Full Range of Motion Respiratory/Chest: No Respiratory Distress, Lungs Clear, Normal Breath Sounds, No Accessory Muscle Use, Chest Non-Tender Cardiovascular: Normal Peripheral Pulses, Regular Rate, Rhythm, No Edema, No Gallop, No JVD, No Murmur, No Rub Peripheral Pulses: 4+: Radial (L) GI/Abdominal: Soft, Non-Tender, No Distention, No Mass (Female) Exam: Deferred Rectal (Female) Exam: Deferred Back Exam: Normal Inspection, Full Range of Motion Extremities: Normal Inspection, Normal Range of Motion, Non-Tender, Normal Capillary Refill Neurological: Other (Initially pt. minimally responsive. She became alert during attempted head CT, was later able to provide a pertinent PMH and ROS.) Psychiatric: Tearful #1 Interpretation Rhythm: NSR Arnett: Normal P-Wave: Present QRS: Normal ST-T: Normal QT: Normal Course - Vital Signs Last Recorded V/S: Last Vital Signs Temp 37.0 C 06/11/21 20:45 Pulse 79 06/11/21 20:45 Resp 16 06/11/21 20:45 BP 158/83 H 06/11/21 20:45 Pulse Ox 99 06/11/21 20:45 - Orders/Labs/Meds Orders: Active Orders 24 hr Category Date Time Status CULTURE URINE [RM] Stat Lab 06/11/21 21:57 Received Sodium Chloride 0.9% [Saline Flush] Med 06/11/21 21:01 Active 10 ml FLUSH ASDIRECTED PRN Peripheral IV Insertion Adult [OM.PC] Routine Oth 06/11/21 21:02 Ordered Medication Orders Magnesium Sulfate 2 gm/ Premix 50 mls @ 50 mls/hr IV ONETIME ONE Stop: 06/11/21 23:38 Sodium Chloride (Sodium Chloride 0.9% 10 Ml Syringe) 10 ml FLUSH ASDIRECTED PRN PRN Reason: Keep Vein Open Labs: Laboratory Tests 06/11/21 06/11/21 06/11/21 Range/Units 20:55 21:05 21:05 WBC 8.8 (4.0-10.0) x10^3/uL RBC 5.01 (4.00-5.50) x10^6/uL Hgb 15.2 (12.0-16.0) g/dL Hct 43.2 (33.0-47.0) % MCV 86.2 (78.0-93.0) fL MCH 30.3 (26.0-32.0) pg MCHC 35.2 (32.0-36.0) g/dL RDW Coeff of Jacobo 11.9 (10.0-15.0) % Plt Count 247 (130-400) x10^3/uL Immature Gran % (Auto) 0.20 (0.00-0.43) % Neut % (Auto) 71.2 (50.0-80.0) % Lymph % (Auto) 20.5 L (25.0-50.0) % Harmon % (Auto) 5.7 (2.0-11.0) % Eos % (Auto) 1.8 (0.0-4.0) % Baso % (Auto) 0.6 (0.2-1.2) % Neut # (Auto) 6.3 (1.8-7.7) x10^3/uL Lymph # (Auto) 1.8 (1.0-4.8) x10^3/uL Harmon # (Auto) 0.5 (0.0-0.8) x10^3/uL Eos # (Auto) 0.2 (0.0-0.5) x10^3/uL Baso # (Auto) 0.1 (0.0-0.2) x10^3/uL Immature Gran # (Auto) 0.02 (0.00-0.07) x10^3/uL PT 10.1 (9.9-12.5) SEC INR 0.9 L (2.0-3.5) APTT (25.6-32.8) SEC Sodium (136-145) mmol/L Potassium (3.5-5.1) mmol/L Chloride (98-107) mmol/L Carbon Dioxide (21-32) mmol/L Anion Gap (5-15) mmol/L BUN (7-18) mg/dL Creatinine (0.55-1.02) mg/dL Est Cr Clr Drug Dosing Estimated GFR (MDRD) Glucose (70-99) mg/dL POC Glucose 160 H (70-99) mg/dL Calcium (8.5-10.1) mg/dL Corrected Calcium (8.5-10.1) mg/dL Phosphorus (2.6-4.7) mg/dL Magnesium (1.8-2.4) mg/dL Total Bilirubin (0.2-1.0) mg/dL AST (15-37) U/L ALT (14-59) U/L Alkaline Phosphatase (46-116) U/L Troponin I High Sens (<=51) ng/L C-Reactive Protein (<=0.9) mg/dL Total Protein (6.4-8.2) g/dL Albumin (3.4-5.0) g/dL Globulin Albumin/Globulin Ratio Urine Color (YELLOW) Urine Appearance (CLEAR) Urine pH (5.0-8.0) Ur Specific Groom Urine Protein (NEGATIVE) mg/dL Urine Glucose (UA) (NEGATIVE) mg/dL Urine Ketones (NEGATIVE) mg/dL Urine Occult Blood (NEGATIVE) Urine Nitrite (NEGATIVE) Urine Bilirubin (NEGATIVE) Urine Urobilinogen (0.2) EU/dL Ur Leukocyte Esterase (NEGATIVE) U Hyaline Cast (Auto) Urine RBC (NOT SEEN) /HPF Urine WBC (NOT SEEN) /HPF Ur Squamous Epith Cells (NOT SEEN) /HPF Urine Bacteria (NOT SEEN) /HPF Urine Mucus (NOT SEEN) /LPF Urine HCG, Qual (NEGATIVE) Urine Opiates Screen (NEGATIVE) Ur Buprenorphine Scrn (NEGATIVE) Ur Oxycodone Screen (NEGATIVE) Urine Methadone Screen (NEGATIVE) Ur Barbiturates Screen (NEGATIVE) Ur Phencyclidine Scrn (NEGATIVE) Ur Amphetamine Screen (NEGATIVE) U Methamphetamines Scrn (NEGATIVE) Urine MDMA Screen (NEGATIVE) U Benzodiazepines Scrn (NEGATIVE) U Cocaine Metab Screen (NEGATIVE) U Marijuana (THC) Screen (NEGATIVE) Ethyl Alcohol (0-3) mg/dL 06/11/21 06/11/21 06/11/21 Range/Units 21:05 21:05 21:57 WBC (4.0-10.0) x10^3/uL RBC (4.00-5.50) x10^6/uL Hgb (12.0-16.0) g/dL Hct (33.0-47.0) % MCV (78.0-93.0) fL MCH (26.0-32.0) pg MCHC (32.0-36.0) g/dL RDW Coeff of Jacobo (10.0-15.0) % Plt Count (130-400) x10^3/uL Immature Gran % (Auto) (0.00-0.43) % Neut % (Auto) (50.0-80.0) % Lymph % (Auto) (25.0-50.0) % Harmon % (Auto) (2.0-11.0) % Eos % (Auto) (0.0-4.0) % Baso % (Auto) (0.2-1.2) % Neut # (Auto) (1.8-7.7) x10^3/uL Lymph # (Auto) (1.0-4.8) x10^3/uL Harmon # (Auto) (0.0-0.8) x10^3/uL Eos # (Auto) (0.0-0.5) x10^3/uL Baso # (Auto) (0.0-0.2) x10^3/uL Immature Gran # (Auto) (0.00-0.07) x10^3/uL PT (9.9-12.5) SEC INR (2.0-3.5) APTT 25.4 L (25.6-32.8) SEC Sodium 139 (136-145) mmol/L Potassium 3.9 (3.5-5.1) mmol/L Chloride 104 (98-107) mmol/L Carbon Dioxide 25 (21-32) mmol/L Anion Gap 13.9 (5-15) mmol/L BUN 5 L (7-18) mg/dL Creatinine 0.7 (0.55-1.02) mg/dL Est Cr Clr Drug Dosing TNP Estimated GFR (MDRD) > 60 Glucose 191 H (70-99) mg/dL POC Glucose (70-99) mg/dL Calcium 9.3 (8.5-10.1) mg/dL Corrected Calcium 9.7 (8.5-10.1) mg/dL Phosphorus 2.3 L (2.6-4.7) mg/dL Magnesium 1.7 L (1.8-2.4) mg/dL Total Bilirubin 0.6 (0.2-1.0) mg/dL AST 17 (15-37) U/L ALT 31 (14-59) U/L Alkaline Phosphatase 89 (46-116) U/L Troponin I High Sens 5 (<=51) ng/L C-Reactive Protein < 0.2 (<=0.9) mg/dL Total Protein 7.5 (6.4-8.2) g/dL Albumin 3.5 (3.4-5.0) g/dL Globulin 4.0 Albumin/Globulin Ratio 0.88 Urine Color Light yellow (YELLOW) Urine Appearance Slightly cloudy H (CLEAR) Urine pH 5.5 (5.0-8.0) Ur Specific Groom 1.015 Urine Protein Negative (NEGATIVE) mg/dL Urine Glucose (UA) Negative (NEGATIVE) mg/dL Urine Ketones Negative (NEGATIVE) mg/dL Urine Occult Blood Trace-intact H (NEGATIVE) Urine Nitrite Negative (NEGATIVE) Urine Bilirubin Negative (NEGATIVE) Urine Urobilinogen 0.2 (0.2) EU/dL Ur Leukocyte Esterase Large H (NEGATIVE) U Hyaline Cast (Auto) Rare Urine RBC 0-5 (NOT SEEN) /HPF Urine WBC 5-10 H (NOT SEEN) /HPF Ur Squamous Epith Cells Moderate H (NOT SEEN) /HPF Urine Bacteria Rare (NOT SEEN) /HPF Urine Mucus Not seen (NOT SEEN) /LPF Urine HCG, Qual (NEGATIVE) Urine Opiates Screen (NEGATIVE) Ur Buprenorphine Scrn (NEGATIVE) Ur Oxycodone Screen (NEGATIVE) Urine Methadone Screen (NEGATIVE) Ur Barbiturates Screen (NEGATIVE) Ur Phencyclidine Scrn (NEGATIVE) Ur Amphetamine Screen (NEGATIVE) U Methamphetamines Scrn (NEGATIVE) Urine MDMA Screen (NEGATIVE) U Benzodiazepines Scrn (NEGATIVE) U Cocaine Metab Screen (NEGATIVE) U Marijuana (THC) Screen (NEGATIVE) Ethyl Alcohol < 3 (0-3) mg/dL 06/11/21 06/11/21 Range/Units 21:57 21:57 WBC (4.0-10.0) x10^3/uL RBC (4.00-5.50) x10^6/uL Hgb (12.0-16.0) g/dL Hct (33.0-47.0) % MCV (78.0-93.0) fL MCH (26.0-32.0) pg MCHC (32.0-36.0) g/dL RDW Coeff of Jacobo (10.0-15.0) % Plt Count (130-400) x10^3/uL Immature Gran % (Auto) (0.00-0.43) % Neut % (Auto) (50.0-80.0) % Lymph % (Auto) (25.0-50.0) % Harmon % (Auto) (2.0-11.0) % Eos % (Auto) (0.0-4.0) % Baso % (Auto) (0.2-1.2) % Neut # (Auto) (1.8-7.7) x10^3/uL Lymph # (Auto) (1.0-4.8) x10^3/uL Harmon # (Auto) (0.0-0.8) x10^3/uL Eos # (Auto) (0.0-0.5) x10^3/uL Baso # (Auto) (0.0-0.2) x10^3/uL Immature Gran # (Auto) (0.00-0.07) x10^3/uL PT (9.9-12.5) SEC INR (2.0-3.5) APTT (25.6-32.8) SEC Sodium (136-145) mmol/L Potassium (3.5-5.1) mmol/L Chloride (98-107) mmol/L Carbon Dioxide (21-32) mmol/L Anion Gap (5-15) mmol/L BUN (7-18) mg/dL Creatinine (0.55-1.02) mg/dL Est Cr Clr Drug Dosing Estimated GFR (MDRD) Glucose (70-99) mg/dL POC Glucose (70-99) mg/dL Calcium (8.5-10.1) mg/dL Corrected Calcium (8.5-10.1) mg/dL Phosphorus (2.6-4.7) mg/dL Magnesium (1.8-2.4) mg/dL Total Bilirubin (0.2-1.0) mg/dL AST (15-37) U/L ALT (14-59) U/L Alkaline Phosphatase (46-116) U/L Troponin I High Sens (<=51) ng/L C-Reactive Protein (<=0.9) mg/dL Total Protein (6.4-8.2) g/dL Albumin (3.4-5.0) g/dL Globulin Albumin/Globulin Ratio Urine Color (YELLOW) Urine Appearance (CLEAR) Urine pH (5.0-8.0) Ur Specific Groom Urine Protein (NEGATIVE) mg/dL Urine Glucose (UA) (NEGATIVE) mg/dL Urine Ketones (NEGATIVE) mg/dL Urine Occult Blood (NEGATIVE) Urine Nitrite (NEGATIVE) Urine Bilirubin (NEGATIVE) Urine Urobilinogen (0.2) EU/dL Ur Leukocyte Esterase (NEGATIVE) U Hyaline Cast (Auto) Urine RBC (NOT SEEN) /HPF Urine WBC (NOT SEEN) /HPF Ur Squamous Epith Cells (NOT SEEN) /HPF Urine Bacteria (NOT SEEN) /HPF Urine Mucus (NOT SEEN) /LPF Urine HCG, Qual Negative (NEGATIVE) Urine Opiates Screen Negative (NEGATIVE) Ur Buprenorphine Scrn Negative (NEGATIVE) Ur Oxycodone Screen Negative (NEGATIVE) Urine Methadone Screen Negative (NEGATIVE) Ur Barbiturates Screen Negative (NEGATIVE) Ur Phencyclidine Scrn Negative (NEGATIVE) Ur Amphetamine Screen Negative (NEGATIVE) U Methamphetamines Scrn Negative (NEGATIVE) Urine MDMA Screen Negative (NEGATIVE) U Benzodiazepines Scrn Negative (NEGATIVE) U Cocaine Metab Screen Negative (NEGATIVE) U Marijuana (THC) Screen Negative (NEGATIVE) Ethyl Alcohol (0-3) mg/dL Meds: Medications Generic Name Dose Route Start Last Admin Trade Name Freq PRN Reason Stop Dose Admin Magnesium Sulfate 2 gm/ Premix 50 mls @ 50 mls/hr 06/11/21 22:39 IV 06/11/21 23:38 ONETIME ONE Sodium Chloride 10 ml 06/11/21 21:01 Sodium Chloride 0.9% 10 Ml Syringe FLUSH ASDIRECTED PRN Keep Vein Open Discontinued Medications Generic Name Dose Route Start Last Admin Trade Name Freq PRN Reason Stop Dose Admin Ceftriaxone Sodium 1 gm 06/11/21 22:11 Ceftriaxone 1 Gm Vial IVPUSH 06/11/21 22:12 STAT ONE Metoclopramide HCl 5 mg 06/11/21 21:30 06/11/21 21:35 Metoclopramide 10 Mg/2 Ml Sdv IVPUSH 06/11/21 21:31 5 mg ONETIME ONE Administration - Re-Assessments/Exams Free Text/Narrative Re-Assessment/Exam: Pt. minimally responsive on arrival to ER, sitting in front seat of car. Sonorous respirations. Pt. was lifted from the car and placed onto the cot. Initially responded mostly only to painful stimuli. Pt. appeared to be holding her eyes closed when she was being examined. When she was brought over to CT, but became alert, yelling and crying out and attempted to get off of the CT scanner, as she reported being claustrophobic. At that time she was alert, an swering questions with some delay. She was given reglan 5 mg IV for headache as she has a history of migraine, which helped. Departure - Departure Time of Disposition: 23:12 Disposition: Refer to Observation Condition: Good Clinical Impression: Decreased level of consciousness, UTI (urinary tract infection), Hypomagnesemia - Discharge Information Sepsis Event Note (ED) - Evaluation Sepsis Screening Result: No Definite Risk - Focused Exam Vital Signs: Vital Signs Temp Pulse Resp BP Pulse Ox 06/11/21 20:45 37.0 C 79 16 158/83 H 99 - Problem List Review Problem List Initiated/Reviewed/Updated: Yes - My Orders Last 24 Hours: My Active Orders 06/11/21 21:01 Sodium Chloride 0.9% [Saline Flush] 10 ml FLUSH ASDIRECTED PRN 06/11/21 21:02 Peripheral IV Insertion Adult [OM.PC] Routine 06/11/21 21:57 CULTURE URINE [RM] Stat - Assessment/Plan Last 24 Hours: My Active Orders 06/11/21 21:01 Sodium Chloride 0.9% [Saline Flush] 10 ml FLUSH ASDIRECTED PRN 06/11/21 21:02 Peripheral IV Insertion Adult [OM.PC] Routine 06/11/21 21:57 CULTURE URINE [RM] Stat Plan: Pt. will be admitted observation. She is a code 1. Cause of this event in unclear. She did not submit to CT scan. Neuro checks Q hour. Will continue telemetry and pulse oximetry. Pt. was given a dose of IV rocephin in ER for UTI. Will start IV mag sulfate on admission. Juan Luis Bhatt will be picking the patient up in the AM. He is listed as one of her PCPs.
[2021-06-12] MEDS ORDERED: Dicyclomine 10 MG Cap PO PRN (08:52)
[2021-06-12] MEDS ORDERED: Acetaminophen 500 MG Tab PO PRN (08:52)
[2021-06-12] MEDS ORDERED: cefTRIAXone 1 GM Vial IVPUSH SCH (09:00)
[2021-06-12] MEDS ORDERED: Losartan 50 MG Tab PO SCH (09:00)
[2021-06-12] MEDS ORDERED: glipiZIDE 5 MG Tab.ER PO SCH (09:00)
[2021-06-12] MEDS ORDERED: Non-Formulary Medication 1 Each (Triamcinolone Acetonide [Triamcinolone Acetonide 0.5%] 15 TOP SCH (09:00)
[2021-06-12] MEDS ORDERED: Citalopram 20 MG Tab PO SCH ×2 (09:00→11:00)
[2021-06-12] MEDS ORDERED: Trospium 20 MG Tab PO SCH (09:00)
[2021-06-12] MEDS ORDERED: amLODIPine 10 MG Tab PO SCH (09:00)
[2021-06-12] MEDS ORDERED: Magnesium Oxide 400 MG Tab PO SCH (09:00)
[2021-06-12] MEDS ORDERED: Budesonide 0.5 MG/2 ML Neb Susp NEB SCH (09:00)
[2021-06-12] MEDS ORDERED: Non-Formulary Medication 1 Each (Rimegepant Sulfate [Nurtec Odt] 75 MG Tab.Rapdis) PO SCH (09:00)
[2021-06-12] MEDS ORDERED: Aspirin 81 MG Tab.EC PO SCH (09:00)
[2021-06-12] MEDS ORDERED: Propranolol 60 MG Cap.ER PO SCH (09:00)
[2021-06-12] MEDS ORDERED: FLUOCINONIDE TOP SCH (09:00)
[2021-06-12] MEDS ORDERED: Non-Formulary Medication 1 Each (Semaglutide [Ozempic] 1 MG/0.75 ML Pen.Injctr) SQ SCH (09:00)
[2021-06-12] MEDS ORDERED: TACROLIMUS TOP SCH (09:00)
[2021-06-12 09:40] VITALS: BP 126/77
[2021-06-12 09:41] LABS: CHLORIDE,CL 104 mmol/L (98-107); SODIUM,NA 139 mmol/L (136-145)
[2021-06-12 09:43] LABS: ANION GAP 11.4 mmol/L (5-15)
[2021-06-12 10:09] VITALS: PULSE 81
--- NOTE | 2021-06-12 11:12 | DISCH ---
ADMITTING DIAGNOSES: 1. Decreased level of consciousness. 2. Urinary tract infection. 3. Hypomagnesemia. DISCHARGE DIAGNOSES: 1. Decreased level of consciousness - resolved. 2. Urinary tract infection, stable. 3. Hypomagnesemia - resolved. HISTORY OF PRESENT ILLNESS: A 40-year-old female patient, presented to the emergency room yesterday after she became very somnolent and complained of a headache and fatigue. Symptoms gradually worsened until the patient was pretty much well unresponsive, so the patient was brought to the ER via private vehicle. Workup in the emergency room did not show any acute etiology. CT of the head was attempted, however, the patient did not tolerate. The laboratory work in the ER was essentially normal outside of the urinary tract infection. The patient was admitted for neuro checks given her presenting symptoms. BRIEF HOSPITAL COURSE: The patient remained hemodynamically stable and afebrile. She did not have any mental status changes. The patient back at baseline at the time of discharge. No issues during this admission. CONSULTATIONS: Case Management for discharge planning. DISCHARGE DIET: Diabetic. ACTIVITY: As tolerated. DISCHARGE LABORATORY WORK: 1. CBC: White blood cell count 6.5, hemoglobin 14.2, hematocrit 42.1, platelets 233,000. 2. CMP: Sodium 139, potassium 4.4, chloride 104, CO2 of 28, anion gap 11.4, BUN 6, creatinine 0.8, GFR greater than 60, glucose 302, calcium 9.3, AST 18, ALT 29, alkaline phosphatase 82, protein 7.2. 3. Magnesium 2.0. DISCHARGE IMAGING STUDIES: None. REVIEW OF SYSTEMS: Constitutional: Negative. Skin: Negative. Respiratory: Negative. Cardiovascular: Negative. Abdomen: Negative. Extremities: Negative. Neurological: Negative. DISCHARGE PHYSICAL EXAMINATION: Vital Signs: Temperature 97.6, pulse 72, blood pressure 126/77, respiratory rate 16, oxygen saturation 98% on room air. Skin: Intact, warm and dry. Respiratory: Lungs are decreased, but clear throughout. Cardiovascular: Regular rate and rhythm, no murmur. Abdomen: Soft, nontender. Bowel sounds are normoactive x4. Extremities: No edema. Neurological: The patient is at baseline. The patient is alert. The patient is oriented to self and place but disoriented to time. DISCHARGE MEDICATIONS: 1. Acetaminophen 500 mg p.o. every 6 hours as needed. 2. Amlodipine 10 mg 1 tablet p.o. daily. 3. Aspirin 81 mg 1 tablet p.o. daily. 4. Pulmicort 0.5 mg via nebulizer twice daily. 5. Bentyl 10 mg p.o. 3 times daily as needed. 6. Lexapro 10 mg 1 tablet p.o. daily. 7. Fluocinonide topically twice daily. 8. Glucotrol 5 mg p.o. daily. 9. Magnesium oxide 400 mg p.o. daily. 10.Melatonin 600 mg 1 tablet p.o. daily at bedtime. 11.Nystatin cream topically 3 times daily. 12.Propranolol 120 mg p.o. daily. 13.Nurtec 75 mg p.o. daily. 14.Ozempic 1 mg subcutaneous every 7 days. 15.Tacrolimus 1 application topical twice daily. 16.Detrol 2 mg p.o. daily. 17.Topamax 50 mg p.o. daily at bedtime. 18.Triamcinolone 1 application topically twice daily. 19.Valsartan 160 mg 1 tablet p.o. daily. ASSESSMENT: 1. Altered mental status - resolved. 2. Urinary tract infection, stable. 3. Hypomagnesemia - resolved. PLAN: The patient will be discharged home today. No changes with any home medications. The patient was discharged in hemodynamic stable condition. The patient will see me in the clinic tomorrow during her regularly scheduled clinic visit. We will review medications at that time. The patient does need help with setting up her medications and taking them as directed. May consider getting home health involved at least for medications. This patient was seen, examined by me as an provider. Total time with care and coordination, greater than 30 minutes. TB: 06/12/2021 10:09:58 MODL: 06/12/2021 11:05:10 /[id number]
[2021-06-12] MEDS ORDERED: Nystatin Crm 30 GM Tube TOP SCH (12:00)
[2021-06-12] MEDS ORDERED: Topiramate 25 MG Tab PO SCH (20:00)
[2021-06-12] MEDS ORDERED: Melatonin 3 MG Tab PO SCH (20:00)
== END 2021-06-12 12:30 | disposition home or self-care (01) ==
LOC: VM.ED 20:45 → VM.MS 22:11
PROVIDERS: ADMIT Nurse Practitioner Family; ATTEND Nurse Practitioner Family
DX: R53.83 Other fatigue (principal); R51.9 Headache, unspecified; R41.82 Altered mental status, unspecified; E83.42 Hypomagnesemia; N39.0 Urinary tract infection, site not specified; I10 Essential (primary) hypertension; F41.1 Generalized anxiety disorder; G43.909 Migraine, unspecified, not intractable, without status migrainosus; E11.9 Type 2 diabetes mellitus without complications; E66.9 Obesity, unspecified; Z79.84 Long term (current) use of oral hypoglycemic drugs; Z79.899 Other long term (current) drug therapy; Z98.890 Other specified postprocedural states; Z20.822 Contact with and (suspected) exposure to COVID-19
CPT/HCPCS: 36415; 80053; 80305; 80307; 81001; 81025; 82947; 83735; 84100; 84484; 85025; 85610; 85730; 86140; 87086; 93005; 94640; 96365; 96375; 96376; 99285; A9270; G0378; J0696; J2765; J3475; U0002; 96374

== ENCOUNTER 2024-11-03 06:30 | Day surgery (SDC) | payer MEDICARE, MEDICAID ==
[~2024-11-03 06:30] MED LIST: Brimonidine 0.2% Ophth Soln 5 ML Bottle ONE; Dexamethasone/Neomycin/Polymyxin B Ophth Oint 3.5 GM Tube ONE; Lidocaine 1% 2 ML ONE; Phenyleprhine/Ketorolac 4 ML Vial ONE; Povidone-Iodine 5% Sterile Ophth Soln 30 ML Bottle ONE; Proparacaine 0.5% Ophth Soln 15 ML Bottle ONE
[2024-11-03] MEDS: Cyclopentolate 1% Opth Soln 2 ML Bottle EYELF SCH (06:36)
[2024-11-03] MEDS: Phenylephrine 2.5% Ophth Soln 2 ML Bot EYELF SCH (06:36)
[2024-11-03] MEDS: Tropicamide 1% Ophth Soln 15 ML Bottle EYELF SCH (06:36)
[2024-11-03] MEDS: Moxifloxacin 0.5% Ophth Soln 3 ML Bottle EYELF ONE ×2 (06:59→07:50)
[2024-11-03] MEDS ORDERED: Midazolam 1 MG/ML 2 ML SDV ONE (07:27)
[2024-11-03] MEDS ORDERED: fentaNYL 100 MCG/2 ML SDV ONE (07:27)
[2024-11-03] MEDS: Povidone-Iodine 5% Sterile Ophth Soln 30 ML Bottle EYELF ONE (07:49)
[2024-11-03] MEDS: Phenyleprhine/Ketorolac 4 ML Vial IO ONE (07:50)
[2024-11-03] MEDS: Balanced Salt Solution Ophth Irrig 500 ML Bottle IOCULAR ONE (07:50)
[2024-11-03] MEDS: Lidocaine 1% PF 2 ML SDV INFILT ONE (07:50)
[2024-11-03] MEDS: Brimonidine 0.2% Ophth Soln 5 ML Bottle EYELF ONE (07:51)
[2024-11-03] MEDS: Chondroitin Sulfate/Hyaluronate Sodium Ophth Inj 0.5 ML Syringe IOCULAR ONE (07:51)
[2024-11-03] MEDS: Dexamethasone/Neomycin/Polymyxin B Ophth Oint 3.5 GM Tube EYELF ONE (07:52)
[2024-11-03] MEDS: acetaZOLAMIDE 500 MG Cap.ER PO ONE (08:09)
[2024-11-03 08:18] VITALS: BP 156/93; PULSE 83
[2024-11-03] MEDS ORDERED: ceFAZolin 500 MG Vial ONE (08:30)
== END 2024-11-03 08:40 | disposition home or self-care (01) ==
LOC: VM.SDS 06:30
PROVIDERS: ATTEND Ophthalmology
DX: E11.36 Type 2 diabetes mellitus with diabetic cataract (principal); H26.8 Other specified cataract; E11.69 Type 2 diabetes mellitus with other specified complication; E11.59 Type 2 diabetes mellitus with other circulatory complications; J45.909 Unspecified asthma, uncomplicated; I10 Essential (primary) hypertension; E78.5 Hyperlipidemia, unspecified; Z79.84 Long term (current) use of oral hypoglycemic drugs; Z79.85 Long-term (current) use of injectable non-insulin antidiabetic drugs; Z79.899 Other long term (current) drug therapy; Z91.040 Latex allergy status; Z88.8 Allergy status to other drugs, medicaments and biological substances
CPT/HCPCS: 00142; 82947; A9270-GY; J0690; J1097; J2003; J2250; J3010; J3490; V2632

== ENCOUNTER 2024-12-01 06:26 | Day surgery (SDC) | payer MEDICARE, MEDICAID ==
[2024-12-01] MEDS: Tropicamide 1% Ophth Soln 15 ML Bottle EYELF SCH (06:35)
[2024-12-01] MEDS: Cyclopentolate 1% Opth Soln 2 ML Bottle EYELF SCH (06:35)
[2024-12-01] MEDS: Phenylephrine 2.5% Ophth Soln 2 ML Bot EYELF SCH (06:35)
[2024-12-01] MEDS: Moxifloxacin 0.5% Ophth Soln 3 ML Bottle EYELF ONE (06:57)
[2024-12-01] MEDS ORDERED: Midazolam 1 MG/ML 2 ML SDV ONE (07:27)
[2024-12-01] MEDS ORDERED: fentaNYL 100 MCG/2 ML SDV ONE (07:27)
[2024-12-01] MEDS ORDERED: ceFAZolin 500 MG Vial ONE (07:50)
[2024-12-01] MEDS: Moxifloxacin 0.5% Ophth Soln 3 ML Bottle EYERT ONE (07:59)
[2024-12-01] MEDS: Povidone-Iodine 5% Sterile Ophth Soln 30 ML Bottle EYERT ONE (07:59)
[2024-12-01] MEDS: Balanced Salt Solution Ophth Irrig 500 ML Bottle IOCULAR ONE (08:03)
[2024-12-01] MEDS: Phenyleprhine/Ketorolac 4 ML Vial IO ONE (08:03)
[2024-12-01] MEDS: Lidocaine 1% PF 2 ML SDV INFILT ONE (08:04)
[2024-12-01] MEDS: Chondroitin Sulfate/Hyaluronate Sodium Ophth Inj 0.5 ML Syringe IOCULAR ONE (08:04)
[2024-12-01] MEDS: Brimonidine 0.2% Ophth Soln 5 ML Bottle EYERT ONE (08:04)
[2024-12-01] MEDS: Dexamethasone/Neomycin/Polymyxin B Ophth Oint 3.5 GM Tube EYERT ONE (08:05)
[2024-12-01] MEDS: acetaZOLAMIDE 500 MG Cap.ER PO ONE (08:23)
[2024-12-01 08:29] VITALS: BP 117/69; PULSE 84
== END 2024-12-01 08:46 | disposition home or self-care (01) ==
LOC: VM.SDS 06:26
PROVIDERS: ATTEND Ophthalmology
DX: E11.36 Type 2 diabetes mellitus with diabetic cataract (principal); H25.813 Combined forms of age-related cataract, bilateral; I10 Essential (primary) hypertension; E11.69 Type 2 diabetes mellitus with other specified complication; E11.59 Type 2 diabetes mellitus with other circulatory complications; E78.5 Hyperlipidemia, unspecified; E66.813 Obesity, class 3; Z68.43 Body mass index [BMI] 50.0-59.9, adult; Z79.84 Long term (current) use of oral hypoglycemic drugs; Z79.899 Other long term (current) drug therapy
CPT/HCPCS: 00142; 82947; A9270-GY; J0690; J1097; J2003; J2250; J3010; J3490; V2632